=== PATIENT | female | born 1955 | race Two or more races ===

== ENCOUNTER 2018-03-25 14:36 | Outpatient (CLI) | payer OTHER, BC | END 2018-03-25 14:44 | disposition home or self-care (01) | LOC: RAD 501 14:36 | DX: J44.1 Chronic obstructive pulmonary disease with (acute) exacerbation (principal) ==

== ENCOUNTER 2021-03-13 12:38 | Emergency (ER) | payer OTHER ==
[~2021-03-13] VITALS: Ht 154.9 cm; Wt 62.6 kg
[2021-03-13] MEDS ORDERED: TIROSINT25 MCG (12:44)
[2021-03-13] MEDS ORDERED: PREVACID15 MG (12:44)
[2021-03-13] MEDS ORDERED: ACETAMINOPHEN650 M2 PO (23:09)
[2021-03-13] MEDS ORDERED: METRONIDAZOLE500 MG PO (23:09)
[2021-03-13] MEDS ORDERED: CIPROFLOXACIN500 MG PO (23:09)
[2021-03-13] MEDS ORDERED: INTESTINEX680 M2 PO (23:09)
[2021-03-13] MEDS ORDERED: PEPCID AC20 MG PO (23:09)
== END 2021-03-13 23:22 | disposition home or self-care (01) ==
LOC: ER 12:38
DX: K57.32 Diverticulitis of large intestine without perforation or abscess without bleeding (principal); R10.32 Left lower quadrant pain